=== PATIENT | female | born 1965 | race Caucasian/White ===

== ENCOUNTER 2018-07-14 13:58 | Emergency (ER) | payer OTHER ==
--- NOTE | 2018-07-14 14:30 | EDPHY ---
H & P Smoking Status: Never smoked Time Seen by Provider: 07/14/18 14:12 HPI/ROS: Chief complaint. Migraine HPI. 52-year-old female presents with headache for 3 days. Headache began as gradual onset as opposed to abrupt or thunderclap. Patient had migraines in her early 20s. She had them with menopause but really does not have a strong migraine history. She had a recent change of affects her from extended release to regular. She has slight nausea. She did not have visual symptoms at onset. No recent head trauma. No fever. 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 She does not have a stiff neck. No rash. ROS 10 systems were reviewed and negative with the exception of the elements mentioned in the history of present illness (William Nelson) Past Medical/Surgical History: Uterine ablation, IBS (William Nelson) Social History: , nonsmoker, no alcohol (William Nelson) Physical Exam: General Appearance: Alert pleasant well-developed female mild distress vital signs are stable. Afebrile Eyes: Pupils equal and round no pallor or injection. ENT, tympanic membranes are normal. Pharynx without injection. Respiratory: There are no retractions, lungs are clear to auscultation. Cardiovascular: Regular rate and rhythm. Gastrointestinal: Abdomen is soft and nontender, no masses, bowel sounds normal. Neurological: Awake and alert, sensory and motor exams grossly normal. Speech is normal. Cranial nerves intact. There is no pronator drift. [id number] are intact Skin: Warm and dry, no rashes. Musculoskeletal: Neck is supple nontender. Extremities symmetrical, full range of motion. Psychiatric: Patient is oriented X 3, there is no agitation. (William Nelson) Constitutional: Initial Vital Signs Temperature (C) 36.6 C 07/14/18 14:01 Heart Rate 70 07/14/18 14:01 Respiratory Rate 18 07/14/18 14:01 Blood Pressure 168/98 H 07/14/18 14:01 O2 Sat (%) 98 07/14/18 14:01 O2 Delivery Mode Room Air Allergies/Adverse Reactions: nitrofurantoin macrocrystalline [From Macrodantin] Allergy (Verified 07/14/18 14 :01) rifaximin Allergy (Verified 07/14/18 14:01) Home Medications: Medication Instructions Recorded Claritin 07/14/18 Effexor Xr 07/14/18 Flonase Nasal Jerome 07/14/18 Medical Decision Making Procedures: IV normal saline. Reglan, Benadryl, Toradol, Decadron IV (William Nelson) Other Provider: [address] Nelson pending laboratory results and re- evaluation. 1540 patient's headache is improved. Down to a 6/10 from a 9/10. Laboratory evaluations are negative. She has no meningismus. Headache was not thunderclap. She and I have discussed options. She does not want any further imaging at this time and I think is reasonable. She would like to see if the medications continue to work. Plan will be to reassess for improvement in her pain. 1630 patient's pain is significantly improved. She is asking to go home. She has no findings suggestive of acute infection or intracranial bleed. Patient is very experienced understands the risks. She will go home with follow-up as an outpatient. She has been given return precautions. ([place]) - Data Points Laboratory Results: Laboratory Results 07/14/18 14:22 07/14/18 14:42 07/14/18 07/14/18 14:42 14:22 WBC 5.56 10^3/uL 10^3/uL (3.80-9.50) RBC 4.52 10^6/uL 10^6/uL (4.18-5.33) Hgb 13.8 g/dL g/dL (12.6-16.3) Hct 39.7 % % (38.0-47.0) MCV 87.8 fL fL (81.5-99.8) MCH 30.5 pg pg (27.9-34.1) MCHC 34.8 g/dL g/dL (32.4-36.7) RDW 12.2 % % (11.5-15.2) Plt Count 272 10^3/uL 10^3/uL (150-400) MPV 9.3 fL fL (8.7-11.7) Neut % (Auto) 53.2 % % (39.3-74.2) Lymph % (Auto) 37.8 % % (15.0-45.0) Luce % (Auto) 6.7 % % (4.5-13.0) Eos % (Auto) 1.8 % % (0.6-7.6) Baso % (Auto) 0.5 % % (0.3-1.7) Nucleat RBC Rel Count 0.0 % % (0.0-0.2) Absolute Neuts (auto) 2.96 10^3/uL 10^3/uL (1.70-6.50) Absolute Lymphs (auto) 2.10 10^3/uL 10^3/uL (1.00-3.00) Absolute Monos (auto) 0.37 10^3/uL 10^3/uL (0.30-0.80) Absolute Eos (auto) 0.10 10^3/uL 10^3/uL (0.03-0.40) Absolute Basos (auto) 0.03 10^3/uL 10^3/uL (0.02-0.10) Absolute Nucleated RBC 0.00 10^3/uL 10^3/uL (0-0.01) Immature Gran % 0.0 % % (0.0-1.1) Immature Gran # 0.00 10^3/uL 10^3/uL (0.00-0.10) Sodium 133 mEq/L L mEq/L (135-145) Potassium 4.1 mEq/L mEq/L (3.5-5.2) Chloride 100 mEq/L mEq/L (97-110) Carbon Dioxide 24 mEq/l mEq/l (22-31) Anion Gap 9 mEq/L mEq/L (6-14) BUN 13 mg/dL mg/dL (7-23) Creatinine 1.0 mg/dL mg/dL (0.6-1.0) Estimated GFR 58 Glucose 86 mg/dL mg/dL (70-100) Calcium 9.4 mg/dL mg/dL (8.5-10.4) Medications Given: Discontinued Medications Diphenhydramine HCl (Benadryl Injection) 12.5 mg IVP EDNOW ONE Stop: 07/14/18 14:43 Last Admin: 07/14/18 14:55 Dose: 12.5 mg Sodium Chloride (Ns) 1,000 mls @ 0 mls/hr IV ONCE ONE; Wide Open PRN Reason: Protocol Stop: 07/14/18 14:43 Last Admin: 07/14/18 14:54 Dose: 1,000 mls Ketorolac Tromethamine (Toradol) 30 mg IVP EDNOW ONE Stop: 07/14/18 14:43 Last Admin: 07/14/18 14:57 Dose: 30 mg Metoclopramide HCl (Reglan Injection) 10 mg IVP EDNOW ONE Stop: 07/14/18 14:43 Last Admin: 07/14/18 14:58 Dose: 10 mg Departure - Departure Disposition: Home, Routine, Self-Care Clinical Impression: Headache Condition: Good Instructions: Acute Headache (ED) Additional Instructions: Follow up with primary care physician in 2-3 days for further evaluation. Return to the emergency department for increasing headache, nausea vomiting, fevers, stiff neck, rash, or any other concerns. Referrals: DEMIAN SCHWARTZ [Other] - As per Instructions
[2018-07-14] MEDS ORDERED: METOCLOPRAMIDE 10 MG/2 ML VIAL IVP ONE (14:42)
[2018-07-14] MEDS ORDERED: DEXAMETHASONE 10 MG/ML VIAL IVP ONE (14:42)
[2018-07-14] MEDS ORDERED: KETOROLAC 30 MG/1 ML SDV IVP ONE (14:42)
[2018-07-14] MEDS ORDERED: NS 1,000 ML IV ONE (14:42)
[2018-07-14 14:55] LABS: PLATELET COUNT 272 10^3/uL (150-400)
[2018-07-14 16:42] VITALS: BP 130/86
== END 2018-07-14 16:42 | disposition home or self-care (01) ==
DX: R51 Headache (principal); E86.9 Volume depletion, unspecified
CPT/HCPCS: 96374; J1100; J1200; J1885; J2765